=== PATIENT | female | born 1955 | race Caucasian/White ===

== ENCOUNTER → 2017-02-11 | Outpatient (CLI) | payer BC ==
--- NOTE | 2017-02-11 11:00 | DIAGNOSTIC IMAGING REPORT ---
CT ABDOMEN NO IV/ORAL CONT (CT) CT DOSE: 461.07 mGy.cm CLINICAL HISTORY: Renal failure. Family history of pancreatic carcinoma. TECHNIQUE: Image as were obtained through the upper abdomen without intravenous contrast. COMPARISON STUDY: None. FINDINGS: The visualized portions lung bases reveal minor basilar atelectasis. No hepatic masses are visualized in this noncontrast study. No gallbladder masses are visualized. No splenic masses are visualized. No pancreatic masses are visualized. No adrenal masses are visualized. There is bilateral renal atrophy. There is partial visualization of what is presumed to represent a left iliac fossa transplant kidney. There is no evidence of abdominal aortic aneurysm. There is no pathologic adenopathy. IMPRESSION: 1. Atrophic date of kidneys 2. No hepatic or pancreatic masses identified on this noncontrast study. Electronically signed by: Reyes Son M.D. 02/11/2017 10:59 AM Dictated Date/Time: 02/11/2017 10:57 AM
== END | disposition home or self-care (01) ==
LOC: C.CTS 10:31
PROVIDERS: ATTEND Internal Medicine
DX: D89.9 Disorder involving the immune mechanism, unspecified (principal); Z87.442 Personal history of urinary calculi; Z80.0 Family history of malignant neoplasm of digestive organs

== ENCOUNTER → 2017-12-05 | Outpatient (CLI) | payer BC ==
[2017-12-05 17:31] LABS: BASO % 0.1 %; BASO ABS # 0.01 K/uL (0-0.2); EOS % 2.3 %; EOS ABS # 0.21 K/uL (0-0.5); HEMATOCRIT 26.1 % (37-47); HEMOGLOBIN 8.8 g/dL (12.0-16.0); IG# 0.02 K/uL (0.00-0.02); LYMPH % 15.3 %; LYMPH ABS # 1.38 K/uL (1.2-3.4); MEAN CELL VOLUME 115.5 fL (80-100); MEAN CORPUSCULAR HEMOGLOBIN 38.9 pg (25-34); MEAN CORPUSCULAR HGB CONC 33.7 g/dl (32-36); MEAN PLATELET VOLUME 9.8 fL (7.4-10.4); MONO % 6.3 %; MONO ABS # 0.57 K/uL (0.11-0.59); NEUT % 75.8 %; NEUT ABS # 6.83 K/uL (1.4-6.5); PLATELET COUNT 269 K/uL (130-400); RED CELL DISTRIBUTION WIDTH CV 15.7 % (11.5-14.5); RED CELL DISTRIBUTION WIDTH SD 65.2 fL (36.4-46.3); WHITE BLOOD COUNT 9.02 K/uL (4.8-10.8)
[2017-12-05 18:25] LABS: ALBUMIN 3.6 gm/dl (3.4-5.0); ALKALINE PHOSPHATASE 55 U/L (45-117); ALT/SGPT 20 U/L (12-78); AST/SGOT 13 U/L (15-37); BLOOD UREA NITROGEN 67 mg/dl (7-18); CALCIUM 9.3 mg/dl (8.5-10.1); CARBON DIOXIDE 21 mmol/L (21-32); GLUCOSE 97 mg/dl (70-99); POTASSIUM 3.5 mmol/L (3.5-5.1); SODIUM 140 mmol/L (136-145); TOTAL PROTEIN 7.3 gm/dl (6.4-8.2); TRANSFERRIN 238 mg/dl (200-360)
[2017-12-05 18:29] LABS: CREATININE 6.64 mg/dl (0.60-1.20)
== END | disposition home or self-care (01) ==
LOC: C.LAB1850 17:02
PROVIDERS: ATTEND Internal Medicine
DX: E66.9 Obesity, unspecified (principal)

== ENCOUNTER → 2017-12-30 | Outpatient (CLI) | payer BC ==
[~2017-12-30] MED LIST: AMOX1TAB42 PO; AZAT50TA33 PO; BNC5 PO; CALC0.2510 PO; HYDR25TA4 PO; ONDA4TAB65 PO; PANT1TAB3 PO; PRED20TA PO; QSTP PO; VANC5CAP PO
[2017-12-30 17:41] LABS: BASO % 0.1 %; BASO ABS # 0.01 K/uL (0-0.2); EOS % 1.4 %; EOS ABS # 0.11 K/uL (0-0.5); HEMATOCRIT 24.5 % (37-47); HEMOGLOBIN 8.4 g/dL (12.0-16.0); IG# 0.02 K/uL (0.00-0.02); LYMPH % 11.7 %; LYMPH ABS # 0.94 K/uL (1.2-3.4); MEAN CELL VOLUME 112.9 fL (80-100); MEAN CORPUSCULAR HEMOGLOBIN 38.7 pg (25-34); MEAN CORPUSCULAR HGB CONC 34.3 g/dl (32-36); MEAN PLATELET VOLUME 9.5 fL (7.4-10.4); MONO ABS # 0.48 K/uL (0.11-0.59); NEUT % 80.6 %; NEUT ABS # 6.47 K/uL (1.4-6.5); PLATELET COUNT 295 K/uL (130-400); RED CELL DISTRIBUTION WIDTH CV 14.6 % (11.5-14.5); RED CELL DISTRIBUTION WIDTH SD 58.8 fL (36.4-46.3); WHITE BLOOD COUNT 8.03 K/uL (4.8-10.8)
[2017-12-30 18:46] LABS: BLOOD UREA NITROGEN 62 mg/dl (7-18); CALCIUM 9.5 mg/dl (8.5-10.1); CARBON DIOXIDE 20 mmol/L (21-32); GLUCOSE 112 mg/dl (70-99); POTASSIUM 3.3 mmol/L (3.5-5.1); SODIUM 139 mmol/L (136-145)
== END ==
LOC: C.LAB1850 16:54
PROVIDERS: ATTEND Internal Medicine
DX: E78.00 Pure hypercholesterolemia, unspecified (principal)

== ENCOUNTER 2017-12-31 14:54 | Observation (INO) | payer BC ==
[~2017-12-31] VITALS: Ht 162.6 cm; Wt 82.6 kg
--- NOTE | 2017-12-31 15:49 | EMERGENCY ROOM VISIT NOTE ---
History First contact with patient: 15:09 Chief Complaint: ABDOMINAL PAIN Stated Complaint: ABDOMINAL PAIN History of Present Illness The patient is a 62 year old female with PMH of left kidney transplant 41 years ago who presents to the Emergency Room with complaints of intermittent LLQ abdominal pain which started about 2 months ago and was getting worse. states the pain is colicky, in her LLQ with no radiation. denies any nausea, vomiting, diarrhea . denies any urinary symptoms. She states that she usually doesn't get any fevers but had a low grade temp yesterday. denies any BRBPR /melena. had a colonoscopy last year and was found to have diverticulosis. denies CP/SOB/palpitations. has a h/o kidney stones in the transplanted kidney but had an US of kidneys in Dec which was apparently normal. Review of Systems See HPI for pertinent positives & negatives. A total of 10 systems reviewed and were otherwise negative. Past Medical/Surgical History Medical Problems: (1) Diabetes mellitus Surgical Problems: (1) History of appendectomy (2) Kidney transplant recipient Left kidney transplant for interstitial nephritis Social History Smoking Status: Never Smoker Current/Historical Medications Scheduled Azathioprine (Imuran), 150 MG PO DAILY Calcitriol (Rocaltrol Cap), 0.25 MCG PO UD Hydrochlorothiazide (Hctz), 25 MG PO DAILY Olmesartan Medoxomil (Benicar), 10 MG PO Q2D Pantoprazole (Protonix), 40 MG PO DAILY Prednisone (Prednisone), 10 MG PO Q2D Physical Exam Vital Signs Date Time Temp Pulse Resp B/P (MAP) Pulse Ox O2 Delivery O2 Flow Rate FiO2 12/31/17 18:34 78 16 117/70 98 Room Air 12/31/17 16:56 82 16 120/62 95 Room Air 12/31/17 15:02 36.8 94 20 148/74 98 Room Air Physical Exam GENERAL: Patient is in no acute distress. HEENT: No acute trauma, normocephalic atraumatic, mucous membranes moist, no nasal congestion, no scleral icterus. NECK: No stridor, no adenopathy, no meningismus, trachea is midline. LUNGS: Clear to auscultation bilaterally, no wheeze, no rhonchi, breath sounds equal. HEART: Without murmurs gallops or rubs, regular rate and rhythm. ABDOMEN: Soft, LLQ tenderness, distended abdomen, bowel sounds positive, midline scar EXTREMITIES: No cyanosis or edema, full range of motion of all the joints without pain or difficulty, no signs for acute trauma. NEUROLOGIC: Oriented x 3, no acute motor or sensory deficits, no focal weakness. SKIN: No rash, no jaundice, no diaphoresis. Medical Decision & Procedures ER Provider Diagnostic Interpretation: [~ rep ct add3]] ABD/PELVIS NO IV OR ORAL CONT CT DOSE: 796.58 mGy.cm HISTORY: Pain LLQ abdominal pain TECHNIQUE: Multiaxial CT images of the abdomen and pelvis were performed without contrast. A dose lowering technique was utilized adhering to the principles of ALARA. COMPARISON STUDY: 02/11/2017 FINDINGS: Chronic pleural reactive change right and to lesser extent left lung base. Overall configuration of liver spleen and pancreas are unremarkable. Several accessory spleens are present. Kidneys are atrophied. Several small renal cysts and renal vascular calcifications are appreciated. Several para-aortic nodes are present unchanged from the prior exam. The bowel pattern is nonobstructive. There is a left renal transplant with no evidence for hydronephrosis. There are findings of acute mid sigmoid diverticulitis. Moderate wall thickening of the mid sigmoid combined with moderate pericolonic infiltrative change is present. There is no evidence for drainable abscess or collection. There is no secondary evidence for free air. IMPRESSION: 1. Acute mid sigmoid diverticulitis. 2. Moderate wall thickening with moderate pericolonic infiltrative change. 3. No evidence for abscess collection or obstruction. 4. Atrophy of the kidneys bilaterally with evidence for left renal pelvic transplant. The above report was generated using voice recognition software. It may contain grammatical, syntax or spelling errors. Electronically signed by: Wilmar Hurley M.D. 12/31/2017 4:12 PM Dictated Date/Time: 12/31/2017 4:07 PM RENAL TRANSPLANT ULTRASOUND CLINICAL HISTORY: Left lower quadrant pain. COMPARISON STUDY: Renal transplant ultrasound August 06, [address] of the abdomen and pelvis February 11, 2017. TECHNIQUE: Grayscale and color and duplex Doppler sonography of the left lower quadrant renal allograft was performed. FINDINGS: Both [place] kidneys are markedly atrophic and contain multiple cysts. The left lower quadrant renal allograft vein and artery are patent. There is mild graft collecting system dilatation. A few small calculi are noted within the allograft. No perigraft fluid collection is present. No elevated velocities were identified within the transplant artery. Resistive indices are elevated within the segmental vessels of the allograft. IMPRESSION: 1. Mild left lower quadrant allograft collecting system dilatation, a nonspecific finding. 2. Patent transplant artery and vein. No elevated velocities to suggest a hemodynamically significant stenosis. 3. Elevated resistive indices within the segmental vessels of the allograft, a finding which may reflect chronic rejection. Electronically signed by: Ang Rodgers M.D. 12/31/2017 4:50 PM Dictated Date/Time: 12/31/2017 4:46 PM Laboratory Results 12/31/17 16:41 Red Blood Count 1.94, Mean Corpuscular Volume 110.3, Mean Corpuscular Hemoglobin 38.7, Mean Corpuscular Hemoglobin Concent 35.0, Mean Platelet Volume 8.7, Neutrophils (%) (Auto) 89.3, Lymphocytes (%) (Auto) 7.1, Monocytes (%) ( Auto) 3.0, Eosinophils (%) (Auto) 0.2, Basophils (%) (Auto) 0.0, Neutrophils # ( Auto) 4.81, Lymphocytes # (Auto) 0.38, Monocytes # (Auto) 0.16, Eosinophils # ( Auto) 0.01, Basophils # (Auto) 0.00 12/31/17 16:41 Test 12/31/17 15:39 12/31/17 16:41 Urine Color YELLOW Urine Appearance CLEAR (CLEAR) Urine pH 5.5 (4.5-7.5) Urine Specific [place] 1.014 (1.000-1.030) Urine Protein 2+ (NEG) Urine Glucose (UA) 1+ (NEG) Urine Ketones TRACE (NEG) Urine Occult Blood 2+ (NEG) Urine Nitrite NEG (NEG) Urine Bilirubin NEG (NEG) Urine Urobilinogen NEG (NEG) Urine Leukocyte Esterase TRACE (NEG) Urine WBC (Auto) 5-10 /hpf (0-5) Urine RBC (Auto) 0-4 /hpf (0-4) Urine Hyaline Casts (Auto) 1-5 /lpf (0-5) Urine Epithelial Cells (Auto) >30 /lpf (0-5) Urine Bacteria (Auto) NEG (NEG) White Blood Count 5.38 K/uL (4.8-10.8) Red Blood Count 1.94 M/uL (4.2-5.4) Hemoglobin 7.5 g/dL (12.0-16.0) Hematocrit 21.4 % (37-47) Mean Corpuscular Volume 110.3 fL (80-100) Mean Corpuscular Hemoglobin 38.7 pg (25-34) Mean Corpuscular Hemoglobin Concent 35.0 g/dl (32-36) Platelet Count 232 K/uL (130-400) Mean Platelet Volume 8.7 fL (7.4-10.4) Neutrophils (%) (Auto) 89.3 % Lymphocytes (%) (Auto) 7.1 % Monocytes (%) (Auto) 3.0 % Eosinophils (%) (Auto) 0.2 % Basophils (%) (Auto) 0.0 % Neutrophils # (Auto) 4.81 K/uL (1.4-6.5) Lymphocytes # (Auto) 0.38 K/uL (1.2-3.4) Monocytes # (Auto) 0.16 K/uL (0.11-0.59) Eosinophils # (Auto) 0.01 K/uL (0-0.5) Basophils # (Auto) 0.00 K/uL (0-0.2) RDW Standard Deviation 56.7 fL (36.4-46.3) RDW Coefficient of Variation 14.3 % (11.5-14.5) Immature Granulocyte % (Auto) 0.4 % Immature Granulocyte # (Auto) 0.02 K/uL (0.00-0.02) Polychromasia 1+ Macrocytosis PRESENT Anion Gap 10.0 mmol/L (3-11) Est Creatinine Clear Calc Drug Dose 9.5 ml/min Estimated GFR () 7.5 Estimated GFR (Non- 6.5 BUN/Creatinine Ratio 11.5 (10-20) Calcium Level 9.1 mg/dl (8.5-10.1) Total Bilirubin 0.4 mg/dl (0.2-1) Aspartate Amino Transf (AST/SGOT) 11 U/L (15-37) Alanine Aminotransferase (ALT/SGPT) 16 U/L (12-78) Alkaline Phosphatase 52 U/L (45-117) Total Protein 6.8 gm/dl (6.4-8.2) Albumin 3.2 gm/dl (3.4-5.0) Globulin 3.6 gm/dl (2.5-4.0) Albumin/Globulin Ratio 0.9 (0.9-2) Lipase 367 U/L (73-393) Medications Administered Medications (Trade) Dose Ordered Sig/Ron Route Start Time Stop Time Status Last Admin Dose Admin Piperacillin Sod/ Tazobactam Sod (Zosyn Iv) 4.5 gm NOW STAT IV 12/31/17 18:37 12/31/17 18:38 DC 12/31/17 18:37 4.5 GM Medical Decision Prior records/ancillary studies reviewed. Triage Nursing notes reviewed. Additional history obtained from the patient. The patient's history was concerning for abdominal pain. Differential diagnosis: Etiologies such as appendicitis, diverticulitis, PUD, biliary pathology, UTI, pancreatitis, obstruction, mesenteric ischemia, aortic pathology, infections, inflammatory bowel disease, renal colic, as well as others were entertained. Physical examination findings: As above. ER treatment provided: CBC, CMP, lipase, UA, abd/pelvis CT, duplex US of transplant were ordered On reassessment the patient felt better. Diagnostics interpreted by me: The labs revealed a hgb of 7.5, Cr at 6.3 Imaging studies: Duplex US: 1. Mild left lower quadrant allograft collecting system dilatation, a nonspecific finding. 2. Patent transplant artery and vein. No elevated velocities to suggest a hemodynamically significant stenosis. 3. Elevated resistive indices within the segmental vessels of the allograft, a finding which may reflect chronic rejection. Abd/pelvis CT: 1. Acute mid sigmoid diverticulitis. 2. Moderate wall thickening with moderate pericolonic infiltrative change. 3. No evidence for abscess collection or obstruction. 4. Atrophy of the kidneys bilaterally with evidence for left renal pelvic transplant. Consultation: A consultation was placed with the hospitalist. The case was discussed and diagnostics were reviewed. The patient was evaluated in the ER for further treatment. By the evaluation outlined above emergent etiologies such as appendicitis, diverticulitis, PUD, biliary pathology, UTI, pancreatitis, obstruction, mesenteric ischemia, aortic pathology, infections, inflammatory bowel disease, renal colic, as well as others were deemed relatively unlikely. 62-year-old female, kidney transplant recipient presented with intermittent lower abdominal pain which started about 2 months ago. She was seen by her marketing program coordinator who recommended that she be admitted. In the ER she was found to have a hemoglobin of 7.5 and a creatinine of 6.4 which is about her baseline. Abdominal CT was obtained which revealed mid sigmoid diverticulitis. An ultrasound of the renal graft was obtained which revealed Patent transplant artery and vein. No elevated velocities to suggest a hemodynamically significant stenosis. Elevated resistive indices within the segmental vessels of the allograft, a finding which may reflect chronic rejection. She was admitted for further eval and treatment Impression Primary Impression: Sigmoid diverticulitis Additional Impressions: Elevated serum creatinine Kidney transplant recipient Departure Information Referrals Matthew Mensah M.D. (PCP) Patient Instructions My [facility] Resident Tracking Resident Involvement: Resident Care Provided Care Provided: Adult ED Problem Qualifiers
--- NOTE | 2017-12-31 16:14 | DIAGNOSTIC IMAGING REPORT ---
ABD/PELVIS NO IV OR ORAL CONT CT DOSE: 796.58 mGy.cm HISTORY: Pain LLQ abdominal pain TECHNIQUE: Multiaxial CT images of the abdomen and pelvis were performed without contrast. A dose lowering technique was utilized adhering to the principles of ALARA. COMPARISON STUDY: 02/11/2017 FINDINGS: Chronic pleural reactive change right and to lesser extent left lung base. Overall configuration of liver spleen and pancreas are unremarkable. Several accessory spleens are present. Kidneys are atrophied. Several small renal cysts and renal vascular calcifications are appreciated. Several para-aortic nodes are present unchanged from the prior exam. The bowel pattern is nonobstructive. There is a left renal transplant with no evidence for hydronephrosis. There are findings of acute mid sigmoid diverticulitis. Moderate wall thickening of the mid sigmoid combined with moderate pericolonic infiltrative change is present. There is no evidence for drainable abscess or collection. There is no secondary evidence for free air. IMPRESSION: 1. Acute mid sigmoid diverticulitis. 2. Moderate wall thickening with moderate pericolonic infiltrative change. 3. No evidence for abscess collection or obstruction. 4. Atrophy of the kidneys bilaterally with evidence for left renal pelvic transplant. The above report was generated using voice recognition software. It may contain grammatical, syntax or spelling errors. Electronically signed by: Wilmar Hurley M.D. 12/31/2017 4:12 PM Dictated Date/Time: 12/31/2017 4:07 PM
--- NOTE | 2017-12-31 16:51 | DIAGNOSTIC IMAGING REPORT ---
RENAL TRANSPLANT ULTRASOUND CLINICAL HISTORY: Left lower quadrant pain. COMPARISON STUDY: Renal transplant ultrasound August 06, [address] of the abdomen and pelvis February 11, 2017. TECHNIQUE: Grayscale and color and duplex Doppler sonography of the left lower quadrant renal allograft was performed. FINDINGS: Both [place] kidneys are markedly atrophic and contain multiple cysts. The left lower quadrant renal allograft vein and artery are patent. There is mild graft collecting system dilatation. A few small calculi are noted within the allograft. No perigraft fluid collection is present. No elevated velocities were identified within the transplant artery. Resistive indices are elevated within the segmental vessels of the allograft. IMPRESSION: 1. Mild left lower quadrant allograft collecting system dilatation, a nonspecific finding. 2. Patent transplant artery and vein. No elevated velocities to suggest a hemodynamically significant stenosis. 3. Elevated resistive indices within the segmental vessels of the allograft, a finding which may reflect chronic rejection. Electronically signed by: Ang Rodgers M.D. 12/31/2017 4:50 PM Dictated Date/Time: 12/31/2017 4:46 PM
[2017-12-31 16:54] LABS: HEMATOCRIT 21.4 % (37-47); HEMOGLOBIN 7.5 g/dL (12.0-16.0); MEAN CELL VOLUME 110.3 fL (80-100); MEAN CORPUSCULAR HEMOGLOBIN 38.7 pg (25-34); MEAN PLATELET VOLUME 8.7 fL (7.4-10.4); PLATELET COUNT 232 K/uL (130-400); RED CELL DISTRIBUTION WIDTH CV 14.3 % (11.5-14.5); RED CELL DISTRIBUTION WIDTH SD 56.7 fL (36.4-46.3); WHITE BLOOD COUNT 5.38 K/uL (4.8-10.8)
[2017-12-31 17:27] LABS: EOS % 0.2 %; EOS ABS # 0.01 K/uL (0-0.5); IG# 0.02 K/uL (0.00-0.02); LYMPH % 7.1 %; LYMPH ABS # 0.38 K/uL (1.2-3.4); MONO ABS # 0.16 K/uL (0.11-0.59); NEUT % 89.3 %; NEUT ABS # 4.81 K/uL (1.4-6.5)
[2017-12-31 17:32] LABS: ALBUMIN 3.2 gm/dl (3.4-5.0); CALCIUM 9.1 mg/dl (8.5-10.1); CREATININE 6.34 mg/dl (0.60-1.20); POTASSIUM 3.4 mmol/L (3.5-5.1); TOTAL PROTEIN 6.8 gm/dl (6.4-8.2)
[2017-12-31] MEDS ORDERED: AZAT50TA33 PO (18:11)
[2017-12-31] MEDS ORDERED: PANT1TAB3 PO (18:11)
[2017-12-31] MEDS ORDERED: PRED20TA PO (18:11)
[2017-12-31] MEDS ORDERED: HYDR25TA4 PO (18:11)
[2017-12-31] MEDS ORDERED: BNC5 PO (18:11)
[2017-12-31] MEDS ORDERED: CALC0.2510 PO (18:11)
[2017-12-31] MEDS ORDERED: PIPERACILLIN/TAZOBACTAM 4.5 GM/100ML D5W IV STA (18:37)
--- NOTE | 2017-12-31 18:54 | EMERGENCY ROOM VISIT NOTE ---
History Report prepared by Susana: Nalini Jones Under the Supervision of: Dr. Jaime Ayala M.D. First contact with patient: 15:06 Chief Complaint: ABDOMINAL PAIN Stated Complaint: ABDOMINAL PAIN History of Present Illness The patient is a 62 year old female who presents to the Emergency Room with complaints of intermittent LLQ abdominal pain for the past 2 months. She states that she had a "GI bug" around New Years and since then she has been having intermittent diarrhea that is worse with eating most food. She has LLQ pain that is also worsened with eating most foods. The patient states that these symptoms have worsened over the past two weeks. She rates her current pain as a 4/10 in severity. Yesterday she went to Dr. Mensah's office. She had a temperature of 100.3 at that time and he advised her to come to the ED for further evaluation. The patient has a history of diverticulosis. The patient had a left kidney transplant 41 years ago. Her creatinine has been stable around 5 for the past few years. She still makes urine and denies any current urinary symptoms. She does not receive dialysis. The patient denies nausea, vomiting, chills, melena, hematochezia, and diarrhea. Source of History: patient Onset: 2 months ago Position: abdomen (LLQ) Symptom Intensity: 4/10 Timing: intermittent Modifying Factors (Worsening): eating Associated Symptoms: + fevers, No chills, No nausea, No vomiting, No melena , No hematochezia, No diarrhea, No urinary symptoms Review of Systems See HPI for pertinent positives & negatives. A total of 10 systems reviewed and were otherwise negative. Past Medical & Surgical Medical Problems: (1) Diabetes mellitus Surgical Problems: (1) History of appendectomy (2) Kidney transplant recipient Family History Cancer Diabetes mellitus FHx: gallbladder disease Heart disease Hypertension Kidney disease Kidney stones Lung disease Social History Smoking Status: Never Smoker Smokeless Tobacco Use: No Alcohol Use: none Housing Status: lives alone Occupation Status: employed Current/Historical Medications Scheduled Azathioprine (Imuran), 150 MG PO DAILY Calcitriol (Rocaltrol Cap), 0.25 MCG PO UD Hydrochlorothiazide (Hctz), 25 MG PO DAILY Olmesartan Medoxomil (Benicar), 10 MG PO Q2D Pantoprazole (Protonix), 40 MG PO DAILY Prednisone (Prednisone), 10 MG PO Q2D Allergies Coded Allergies: NSAIDs (Verified Allergy, Severe, Kidney transplant, 12/31/17) Meperidine (Verified Allergy, Intermediate, N/V, 12/31/17) Furosemide (Verified Allergy, Mild, Rash, 12/31/17) Sulfa Antibiotics (Verified Allergy, Mild, Hives, 12/31/17) Uncoded Allergies: NARCOTICS (Allergy, Unknown, "They make me sick.", 12/31/17) Physical Exam Vital Signs Date Time Temp Pulse Resp B/P (MAP) Pulse Ox O2 Delivery O2 Flow Rate FiO2 12/31/17 18:34 78 16 117/70 98 Room Air 12/31/17 16:56 82 16 120/62 95 Room Air 12/31/17 15:02 36.8 94 20 148/74 98 Room Air Physical Exam Constitutional: Vital signs reviewed. Eyes: Pupils are equal round reactive to light. Conjunctiva are noninjected. ENT: Pharynx is clear without erythema or exudate. Mucous membranes are moist. Neck supple without meningeal signs. Respiratory: Clear to auscultation bilaterally. Breath sounds are equal bilaterally. Cardiovascular: Regular rate and rhythm. No rubs or gallops. GI: Soft, nondistended. LLQ tenderness, no guarding. Bowel sounds are present. Musculoskeletal: No peripheral edema. No lower extremity tenderness. Integumentary: No cyanosis. Neurological: The patient is awake and alert. No focal deficits. Psychiatric: Normal affect. Medical Decision & Procedures Laboratory Results 12/31/17 16:41 Red Blood Count 1.94, Mean Corpuscular Volume 110.3, Mean Corpuscular Hemoglobin 38.7, Mean Corpuscular Hemoglobin Concent 35.0, Mean Platelet Volume 8.7, Neutrophils (%) (Auto) 89.3, Lymphocytes (%) (Auto) 7.1, Monocytes (%) ( Auto) 3.0, Eosinophils (%) (Auto) 0.2, Basophils (%) (Auto) 0.0, Neutrophils # ( Auto) 4.81, Lymphocytes # (Auto) 0.38, Monocytes # (Auto) 0.16, Eosinophils # ( Auto) 0.01, Basophils # (Auto) 0.00 12/31/17 16:41 Test 12/31/17 15:39 12/31/17 16:41 Urine Color YELLOW Urine Appearance CLEAR (CLEAR) Urine pH 5.5 (4.5-7.5) Urine Specific [place] 1.014 (1.000-1.030) Urine Protein 2+ (NEG) Urine Glucose (UA) 1+ (NEG) Urine Ketones TRACE (NEG) Urine Occult Blood 2+ (NEG) Urine Nitrite NEG (NEG) Urine Bilirubin NEG (NEG) Urine Urobilinogen NEG (NEG) Urine Leukocyte Esterase TRACE (NEG) Urine WBC (Auto) 5-10 /hpf (0-5) Urine RBC (Auto) 0-4 /hpf (0-4) Urine Hyaline Casts (Auto) 1-5 /lpf (0-5) Urine Epithelial Cells (Auto) >30 /lpf (0-5) Urine Bacteria (Auto) NEG (NEG) White Blood Count 5.38 K/uL (4.8-10.8) Red Blood Count 1.94 M/uL (4.2-5.4) Hemoglobin 7.5 g/dL (12.0-16.0) Hematocrit 21.4 % (37-47) Mean Corpuscular Volume 110.3 fL (80-100) Mean Corpuscular Hemoglobin 38.7 pg (25-34) Mean Corpuscular Hemoglobin Concent 35.0 g/dl (32-36) Platelet Count 232 K/uL (130-400) Mean Platelet Volume 8.7 fL (7.4-10.4) Neutrophils (%) (Auto) 89.3 % Lymphocytes (%) (Auto) 7.1 % Monocytes (%) (Auto) 3.0 % Eosinophils (%) (Auto) 0.2 % Basophils (%) (Auto) 0.0 % Neutrophils # (Auto) 4.81 K/uL (1.4-6.5) Lymphocytes # (Auto) 0.38 K/uL (1.2-3.4) Monocytes # (Auto) 0.16 K/uL (0.11-0.59) Eosinophils # (Auto) 0.01 K/uL (0-0.5) Basophils # (Auto) 0.00 K/uL (0-0.2) RDW Standard Deviation 56.7 fL (36.4-46.3) RDW Coefficient of Variation 14.3 % (11.5-14.5) Immature Granulocyte % (Auto) 0.4 % Immature Granulocyte # (Auto) 0.02 K/uL (0.00-0.02) Polychromasia 1+ Macrocytosis PRESENT Anion Gap 10.0 mmol/L (3-11) Est Creatinine Clear Calc Drug Dose 9.5 ml/min Estimated GFR () 7.5 Estimated GFR (Non- 6.5 BUN/Creatinine Ratio 11.5 (10-20) Calcium Level 9.1 mg/dl (8.5-10.1) Total Bilirubin 0.4 mg/dl (0.2-1) Aspartate Amino Transf (AST/SGOT) 11 U/L (15-37) Alanine Aminotransferase (ALT/SGPT) 16 U/L (12-78) Alkaline Phosphatase 52 U/L (45-117) Total Protein 6.8 gm/dl (6.4-8.2) Albumin 3.2 gm/dl (3.4-5.0) Globulin 3.6 gm/dl (2.5-4.0) Albumin/Globulin Ratio 0.9 (0.9-2) Lipase 367 U/L (73-393) Laboratory results as reviewed by me. ED Course 1506: The patient was evaluated in room B2. A complete history and physical exam was performed. Medical Decision This is a 62-year-old female who presents with left lower quadrant abdominal pain. Differential diagnosis includes diverticulitis, abscess, perforation, kidney stone, UTI, transplant rejection. I did perform a limited focused review of portions of the patient's old chart on the electronic medical record. The patient has had no recent pertinent visits to this hospital. I did evaluate the patient as noted above. IV access was established. I did order and personally review the patient's urine analysis as described above. I did order and review the patient's blood work as noted in the electronic medical record. She is anemic. Her creatinine is 6.3. I did order a CT of the abdomen and pelvis. I did review the images myself as well as the radiology report as described above. She does have mid sigmoid diverticulitis without evidence of abscess or perforation. Ultrasound of the renal allograft shows no acute abnormality. The test results were discussed with the patient. I did discuss the case with Dr. Mensah who sent the patient here. He did wish to have her hospitalized. I did speak to Dr. Kim and the case checker. I did treat her with Zosyn IV. Resident Physician Supervision Note: I did evaluate and examine this patient myself. I did guide management for the patient. I agree with the resident's Dr. Drake assessment as discussed. Please see the resident's dictation for further details. Medication Reconcilliation Current Medication List: was personally reviewed by me Blood Pressure Screening Patient's blood pressure: Elevated blood pressure Blood pressure disposition: Referred to PCP Consults Consulting Physician: Dr. Kim Returned Call: Additional Consults: Consulted Physician: Dr. Mensah Returned Call: [phone] Impression Primary Impression: Sigmoid diverticulitis Additional Impressions: Hx of kidney transplant Elevated serum creatinine Anemia Scribe Attestation The scribe's documentation has been prepared under my direct and personally reviewed by me in its entirety. I confirm that the note above accurately reflects all work, treatment, procedures, and medical decision making performed by me. Departure Information Dispostion Being Evaluated By Hospitalist Referrals Matthew Mensah M.D. (PCP) Patient Instructions My [facility] Problem Qualifiers Additional Impressions: Anemia Anemia type: due to chronic kidney disease Chronic kidney disease stage: unspecified stage Qualified Codes: N18.9 - Chronic kidney disease, unspecified ; D63.1 - Anemia in chronic kidney disease
[2017-12-31] MEDS ORDERED: ACETAMINOPHEN 325 MG TAB PO PRN (19:15)
[2017-12-31] MEDS ORDERED: MAGNESIUM HYDROXIDE SUSP 30 ML UDC PO PRN (19:15)
--- NOTE | 2017-12-31 19:25 | History and Physical ---
History & Physical Date & Time of Service: Dec 31, 2017 at 19:08 Chief Complaint: Abdominal Pain Primary Care Physician: Matthew Mensah M.D. History of Present Illness Source: patient 62 y/o F c/o intermittent LLQ abdominal pain. Pt states that she had a "GI bug" around New Year's with v/d. The v/d resolved, but she continued to have pain that has been steadily getting worse. There is no radiation. Denies n/v/d. She had a low grade temp yesterday, but none prior. She has no urinary sx. She was tolerating PO until recently when all PO started to cause her to have worsening abd pain. Pt denies fever, SOB, chest pain, LE pain or swelling. Pt states she has hemorrhoids that she has palpated herself. She does get BRB on toilet tissue at times, but she has not had a bowel movement recently due to decreased PO intake. Pt states she has been holding her omesartan due to low BP. She is taking this for renal protection only and checks her BPs daily. She takes HCTZ for LE swelling and this has been well controlled. Pt states her Hb will gradually dwindle as she moves further from her Procrit injection and she is about due for this. Past Medical/Surgical History Medical Problems: (1) Diabetes mellitus Status: Chronic Surgical Problems: (1) History of appendectomy Status: Resolved (2) Kidney transplant recipient Status: Chronic DM, diet controlled GERD LE swelling Family History Cancer Diabetes mellitus FHx: gallbladder disease Heart disease Hypertension Kidney disease Kidney stones Lung disease Mother with hx of CAD, s/p CVA Father: pancreatic cancer, s/p CVA Social History Smoking Status: Never Smoker Smokeless Tobacco Use: No Alcohol Use: none Drug Use: none Occupational Status: employed Multi-Drug Resistant Organisms History of MDRO: No Allergies Coded Allergies: NSAIDs (Verified Allergy, Severe, Kidney transplant, 12/31/17) Meperidine (Verified Allergy, Intermediate, N/V, 12/31/17) Furosemide (Verified Allergy, Mild, Rash, 12/31/17) Sulfa Antibiotics (Verified Allergy, Mild, Hives, 12/31/17) Uncoded Allergies: NARCOTICS (Allergy, Unknown, "They make me sick.", 12/31/17) Home Medications Scheduled Azathioprine (Imuran), 150 MG PO DAILY Calcitriol (Rocaltrol Cap), 0.25 MCG PO UD Hydrochlorothiazide (Hctz), 25 MG PO DAILY Olmesartan Medoxomil (Benicar), 10 MG PO Q2D Pantoprazole (Protonix), 40 MG PO DAILY Prednisone (Prednisone), 10 MG PO Q2D Review of Systems Pertinent positives and negatives reviewed in HPI--all others negative Physical Exam Vital Signs Date Time Temp Pulse Resp B/P (MAP) Pulse Ox O2 Delivery O2 Flow Rate FiO2 12/31/17 18:34 78 16 117/70 98 Room Air 12/31/17 16:56 82 16 120/62 95 Room Air 12/31/17 15:02 36.8 94 20 148/74 98 Room Air General Appearance: WD/WN, no apparent distress Head: normocephalic, atraumatic Eyes: normal inspection, sclerae normal Respiratory/Chest: normal breath sounds, no respiratory distress Cardiovascular: regular rate, rhythm, no edema Abdomen/GI: soft, + tenderness (LLQ), + distended Extremities/Musculoskelatal: no calf tenderness, no pedal edema Neurologic/Psych: alert, normal mood/affect, oriented x 3 Skin: normal color, warm/dry Diagnostics Laboratory Results Results Past 24 Hours Test 12/31/17 15:39 12/31/17 16:41 Range/Units Urine Color YELLOW Urine Appearance CLEAR CLEAR Urine pH 5.5 4.5-7.5 Urine Specific [place] 1.014 1.000-1.030 Urine Protein 2+ NEG Urine Glucose (UA) 1+ NEG Urine Ketones TRACE NEG Urine Occult Blood 2+ NEG Urine Nitrite NEG NEG Urine Bilirubin NEG NEG Urine Urobilinogen NEG NEG Urine Leukocyte Esterase TRACE NEG Urine WBC (Auto) 5-10 0-5 /hpf Urine RBC (Auto) 0-4 0-4 /hpf Urine Hyaline Casts (Auto) 1-5 0-5 /lpf Urine Epithelial Cells (Auto) >30 0-5 /lpf Urine Bacteria (Auto) NEG NEG White Blood Count 5.38 4.8-10.8 K/uL Red Blood Count 1.94 4.2-5.4 M/uL Hemoglobin 7.5 12.0-16.0 g/dL Hematocrit 21.4 37-47 % Mean Corpuscular Volume 110.3 80-100 fL Mean Corpuscular Hemoglobin 38.7 25-34 pg Mean Corpuscular Hemoglobin Concent 35.0 32-36 g/dl Platelet Count 232 130-400 K/uL Mean Platelet Volume 8.7 7.4-10.4 fL Neutrophils (%) (Auto) 89.3 % Lymphocytes (%) (Auto) 7.1 % Monocytes (%) (Auto) 3.0 % Eosinophils (%) (Auto) 0.2 % Basophils (%) (Auto) 0.0 % Neutrophils # (Auto) 4.81 1.4-6.5 K/uL Lymphocytes # (Auto) 0.38 1.2-3.4 K/uL Monocytes # (Auto) 0.16 0.11-0.59 K/uL Eosinophils # (Auto) 0.01 0-0.5 K/uL Basophils # (Auto) 0.00 0-0.2 K/uL RDW Standard Deviation 56.7 36.4-46.3 fL RDW Coefficient of Variation 14.3 11.5-14.5 % Immature Granulocyte % (Auto) 0.4 % Immature Granulocyte # (Auto) 0.02 0.00-0.02 K/uL Polychromasia 1+ Macrocytosis PRESENT Sodium Level 139 136-145 mmol/L Potassium Level 3.4 3.5-5.1 mmol/L Chloride Level 107 98-107 mmol/L Carbon Dioxide Level 23 21-32 mmol/L Anion Gap 10.0 3-11 mmol/L Blood Urea Nitrogen 73 7-18 mg/dl Creatinine 6.34 0.60-1.20 mg/dl Est Creatinine Clear Calc Drug Dose 9.5 ml/min Estimated GFR () 7.5 Estimated GFR (Non- 6.5 BUN/Creatinine Ratio 11.5 10-20 Random Glucose 155 70-99 mg/dl Calcium Level 9.1 8.5-10.1 mg/dl Total Bilirubin 0.4 0.2-1 mg/dl Aspartate Amino Transf (AST/SGOT) 11 15-37 U/L Alanine Aminotransferase (ALT/SGPT) 16 12-78 U/L Alkaline Phosphatase 52 45-117 U/L Total Protein 6.8 6.4-8.2 gm/dl Albumin 3.2 3.4-5.0 gm/dl Globulin 3.6 2.5-4.0 gm/dl Albumin/Globulin Ratio 0.9 0.9-2 Lipase 367 73-393 U/L Microbiology Results 12/31/17 Urine Culture, Received Pending Diagnostic Radiology CT AP: 1. Acute mid sigmoid diverticulitis. 2. Moderate wall thickening with moderate pericolonic infiltrative change. 3. No evidence for abscess collection or obstruction. 4. Atrophy of the kidneys bilaterally with evidence for left renal pelvic transplant. Renal US: 1. Mild left lower quadrant allograft collecting system dilatation, a nonspecific finding. 2. Patent transplant artery and vein. No elevated velocities to suggest a hemodynamically significant stenosis. 3. Elevated resistive indices within the segmental vessels of the allograft, a finding which may reflect chronic rejection. Impression Assessment and Plan 62 y/o F who was admitted for observation on 12/31 for acute diverticulitis Acute sigmoid diverticulitis: noted as mild on CTAP without abscess Cipro/flagyl PO given no trial of outpt abx IVF and clears No hx of prior episodes, does not need surgical c/s at this time VSS Pt is requesting diet, however will start with clears given decreased recent intake Renal transplant: steroids and immunosuppressants as prior States she has been holding her olmesartan recently due to lower BP, will continue to hold and monitor Renal US is WNL for transplant Baseline cr has been 6-6.6 recently, at 6.3 today Anemia: has been slowly drifting down and pt states this is usual as she moves further away from her procrit injection Monitor Hx of hemorrhoids that do bleed at times Abn UA: urine cx pending Will hold on further abx HypoK: mild, monitor for now DM: diet controlled, monitor States recent A1c was 6.1, will not repeat GERD: continue home meds Other: Full code Clears with IVF SCDs for DVT proph Level of Care Med/Surg Resuscitation Status FULL RESUSCITATION VTE Prophylaxis VTE Risk Assessment Done? Y/N: Yes Risk Level: Low
[2017-12-31] MEDS ORDERED: IV FLUIDS COMPLETED PRN (19:30)
[2017-12-31] MEDS: METRONIDAZOLE 500 MG TAB PO SCH (22:17)
[2017-12-31] MEDS: SODIUM CHLORIDE 0.9% 1000ML 1,000 ML IV SCH (22:17)
[2017-12-31] MEDS: CIPROFLOXACIN 500 MG TAB PO SCH (22:18)
[2017-12-31 22:52] VITALS: BP 115/71; PULSE 88; TEMP 36.8; O2SAT 97
[2018-01-01] VITALS: BP 106/64; PULSE 78; TEMP 36.8; O2SAT 99; Ht 162.6 cm; Wt 82.6 kg
[2018-01-01 06:10] LABS: HEMATOCRIT 19.5 % (37-47); HEMOGLOBIN 6.8 g/dL (12.0-16.0); MEAN CELL VOLUME 110.2 fL (80-100); MEAN CORPUSCULAR HEMOGLOBIN 38.4 pg (25-34); MEAN CORPUSCULAR HGB CONC 34.9 g/dl (32-36); MEAN PLATELET VOLUME 9.2 fL (7.4-10.4); PLATELET COUNT 223 K/uL (130-400); RED CELL DISTRIBUTION WIDTH CV 14.4 % (11.5-14.5); RED CELL DISTRIBUTION WIDTH SD 57.2 fL (36.4-46.3); WHITE BLOOD COUNT 5.13 K/uL (4.8-10.8)
[2018-01-01] MEDS: SODIUM CHLORIDE 0.9% 1000ML 1,000 ML IV SCH ×2 (06:14→16:58)
[2018-01-01 06:38] LABS: CALCIUM 8.9 mg/dl (8.5-10.1); CREATININE 6.01 mg/dl (0.60-1.20); POTASSIUM 3.4 mmol/L (3.5-5.1)
[2018-01-01 08:08] VITALS: BP 91/51; PULSE 69; TEMP 36.5; O2SAT 98
[2018-01-01] MEDS: AZATHIOPRINE 50 MG TAB PO SCH (08:31)
[2018-01-01] MEDS: METRONIDAZOLE 500 MG TAB PO SCH ×3 (08:31→21:18)
[2018-01-01] MEDS: PANTOprazole SOD 40 MG TAB PO SCH (08:31)
[2018-01-01] MEDS: CALCITRIOL 0.25 MCG CAP PO SCH (08:31)
[2018-01-01] MEDS: HYDROCHLOROTHIAZIDE 25 MG TAB PO SCH (08:31)
[2018-01-01 12:00] VITALS: BP 101/52; PULSE 62; TEMP 36.8; O2SAT 96
[2018-01-01 15:31] VITALS: BP 114/69; PULSE 69; TEMP 36.6; O2SAT 98
--- NOTE | 2018-01-01 18:22 | Progress Note ---
Subjective Date of Service: Jan 01, 2018. Subjective pt was seen in the evening and was feeling much better tolerated liquid diet and requested soft food, much less lower quadrant pain. did walk halls without much issues except fatigue Problem List Medical Problems: (1) Anemia Status: Acute (2) Elevated serum creatinine Status: Acute (3) Sigmoid diverticulitis Status: Acute Surgical Problems: (1) Kidney transplant recipient Status: Chronic Social History Problems: (1) Hx of kidney transplant Status: Acute Review of Systems Constitutional: + weakness, + fatigue, No fever, No chills Respiratory: No cough, No shortness of breath, No dyspnea on exertion Cardiac: No chest pain, No PND, No edema Abdomen: No pain, No nausea, No vomiting, No diarrhea Musculoskeletal: No joint pain, No muscle pain Female : No dysuria, No urinary frequency Objective Vital Signs Date Time Temp Pulse Resp B/P (MAP) Pulse Ox O2 Delivery O2 Flow Rate FiO2 01/01/18 16:00 Room Air 01/01/18 15:31 36.6 69 18 114/69 (84) 98 Room Air 01/01/18 12:00 36.8 62 20 101/52 (68) 96 Room Air 01/01/18 08:08 36.5 69 20 91/51 (64) 98 Room Air 01/01/18 08:00 Room Air 01/01/18 00:00 36.8 78 18 106/64 (78) 99 Room Air 01/01/18 00:00 36.8 78 18 106/64 Room Air 12/31/17 22:52 36.8 88 16 115/71 (86) 97 Room Air 12/31/17 19:33 76 16 117/70 95 Room Air 12/31/17 18:34 78 16 117/70 98 Room Air Physical Exam General Appearance: WD/WN, + mild distress Eyes: normal inspection, sclerae normal Respiratory/Chest: chest non-tender, lungs clear, normal breath sounds Cardiovascular: regular rate, rhythm, no murmur Abdomen: normal bowel sounds, soft, + tenderness (mild) Extremities: no pedal edema, no calf tenderness, normal capillary refill Laboratory Results Last 24 Hours Test 01/01/18 05:18 White Blood Count 5.13 K/uL Red Blood Count 1.77 M/uL Hemoglobin 6.8 g/dL Hematocrit 19.5 % Mean Corpuscular Volume 110.2 fL Mean Corpuscular Hemoglobin 38.4 pg Mean Corpuscular Hemoglobin Concent 34.9 g/dl RDW Standard Deviation 57.2 fL RDW Coefficient of Variation 14.4 % Platelet Count 223 K/uL Mean Platelet Volume 9.2 fL Sodium Level 141 mmol/L Potassium Level 3.4 mmol/L Chloride Level 110 mmol/L Carbon Dioxide Level 23 mmol/L Anion Gap 8.0 mmol/L Blood Urea Nitrogen 70 mg/dl Creatinine 6.01 mg/dl Est Creatinine Clear Calc Drug Dose 10.1 ml/min Estimated GFR () 8.0 Estimated GFR (Non- 6.9 BUN/Creatinine Ratio 11.8 Random Glucose 96 mg/dl Calcium Level 8.9 mg/dl Assessment and Plan 62 y/o F who was admitted for observation on 12/31 for acute diverticulitis seen on CT 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 and suffers from anemia of chronic disease Acute sigmoid diverticulitis: noted as mild on CT without abscess Cipro/flagyl PO given tolerating advancing diet Renal transplant: steroids and immunosuppressants as prior States she has been holding her olmesartan recently due to lower BP, continue to hold Renal US is WNL for transplant Baseline cr has been 6-6.6 recently, current discussions for consideration of repeat transplant Anemia of chornic disease: has been on procrit injections, pending iron studies and consideration of iv iron Abn UA: urine cx pending on antibiotic for diverticulitis DM: diet controlled, recent A1c was 6.1 SCDs for DVT proph
[2018-01-01] MEDS ORDERED: POTASSIUM CHLORIDE 20 MEQ TABCR PO ONE (18:45)
[2018-01-01] MEDS: CIPROFLOXACIN 500 MG TAB PO SCH (21:18)
[2018-01-02] VITALS (9 sets, daily range): BP systolic 103–129; BP diastolic 55–79; PULSE 70–88; TEMP 36.8–37.1; O2SAT 91–98
[2018-01-02] MEDS: SODIUM CHLORIDE 0.9% 1000ML 1,000 ML IV SCH ×2 (03:52→12:18)
[2018-01-02 06:30] LABS: TRANSFERRIN 159 mg/dl (200-360)
[2018-01-02] MEDS: ONDANSETRON INJ 2 MG/ML 2 ML VIAL IV PRN ×2 (06:35→21:55)
[2018-01-02] MEDS: AZATHIOPRINE 50 MG TAB PO SCH (07:47)
[2018-01-02] MEDS: METRONIDAZOLE 500 MG TAB PO SCH ×2 (07:47→11:26)
[2018-01-02] MEDS: PANTOprazole SOD 40 MG TAB PO SCH (07:48)
[2018-01-02] MEDS: CALCITRIOL 0.25 MCG CAP PO SCH (07:48)
[2018-01-02] MEDS: HYDROCHLOROTHIAZIDE 25 MG TAB PO SCH (07:49)
[2018-01-02] MEDS ORDERED: EPOETIN ALFA 40,000 UNITS/ML VIAL IV SCH (16:00)
--- NOTE | 2018-01-02 19:45 | Progress Note ---
Subjective Date of Service: Jan 02, 2018. Subjective this pt feels very dyspneic on exertion Dr Mensah feels that this is due to symptomatic anemia. the pt has some mild improvement in her abdominal exam. the pt also is concerned about flagyl and wants to be switched to augmentin Problem List Medical Problems: (1) Anemia Status: Acute (2) Elevated serum creatinine Status: Acute (3) Sigmoid diverticulitis Status: Acute Surgical Problems: (1) Kidney transplant recipient Status: Chronic Social History Problems: (1) Hx of kidney transplant Status: Acute Review of Systems Constitutional: + weakness, + fatigue, No fever, No chills Respiratory: + shortness of breath, + dyspnea on exertion, No cough Cardiac: No chest pain, No PND Abdomen: + pain, + diarrhea, No nausea Musculoskeletal: No joint pain, No muscle pain Neurologic: No memory loss, No weakness Psychiatric: No depression symptoms, No anhedonism Objective Vital Signs Date Time Temp Pulse Resp B/P (MAP) Pulse Ox O2 Delivery O2 Flow Rate FiO2 01/02/18 18:22 37.1 18 119/70 (86) 97 Room Air 01/02/18 18:22 37.1 70 18 119/70 91 01/02/18 16:51 37.1 78 18 129/73 95 01/02/18 16:50 37.1 78 18 129/73 (91) 95 01/02/18 16:05 37.1 76 18 126/79 (95) 95 Room Air 01/02/18 16:05 37.1 76 18 126/79 95 01/02/18 16:00 Room Air 01/02/18 14:20 36.9 73 18 113/70 97 01/02/18 13:47 37.0 72 18 103/63 98 01/02/18 13:33 36.8 84 18 121/72 97 01/02/18 08:00 Room Air 01/02/18 07:59 37.1 76 16 117/63 (81) 93 Room Air 01/02/18 00:14 37.0 88 18 113/55 (74) 94 Room Air 01/02/18 00:00 Room Air Physical Exam General Appearance: WD/WN, + mild distress Eyes: normal inspection, sclerae normal Neck: supple, no JVD Respiratory/Chest: chest non-tender, lungs clear, normal breath sounds Cardiovascular: regular rate, rhythm, no murmur Abdomen: normal bowel sounds, non tender, soft Extremities: no pedal edema, no calf tenderness Neurologic/Psychiatric: alert, oriented x 3 Laboratory Results Last 24 Hours Test 01/02/18 05:24 Iron Level 53 mcg/dl Total Iron Binding Capacity 190 mcg/dl Transferrin 159 mg/dl Transferrin % Saturation 24 % Assessment and Plan 62 y/o F who was admitted for observation on 12/31 for acute diverticulitis seen on CT 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 and suffers from anemia of chronic disease Acute sigmoid diverticulitis: noted as mild on CT without abscess Cipro/flagyl changed to Augmentin PO given tolerating advancing diet Renal transplant: steroids and immunosuppressants continues continue to holding her olmesartan Renal US is WNL for transplant Baseline cr has been 6-6.6 recently, current discussions for consideration of repeat transplant Anemia of chronic disease: will transfuse 2 units leukopoor irradiated blood cells, and give procrit 40,000 units Abn UA: urine cx pending on antibiotic for diverticulitis DM: diet controlled, recent A1c was 6.1 SCDs for DVT proph
[2018-01-02] MEDS ORDERED: AUGMENTIN - PHARMACY CONSULT IN PROGRESS PRN (20:45)
[2018-01-02] MEDS: AMOXICILLIN/CLAVULANATE TAB 500 MG TAB PO SCH (21:55)
[2018-01-03] VITALS: BP 115/71; PULSE 71; TEMP 36.7; O2SAT 94
[2018-01-03 04:31] VITALS: BP 128/69; PULSE 73; TEMP 36.7; O2SAT 99
[2018-01-03] MEDS: SODIUM CHLORIDE 0.9% 1000ML 1,000 ML IV SCH ×3 (05:50→15:58)
[2018-01-03 06:34] LABS: HEMATOCRIT 26.9 % (37-47); HEMOGLOBIN 9.2 g/dL (12.0-16.0); MEAN CELL VOLUME 100.7 fL (80-100); MEAN CORPUSCULAR HEMOGLOBIN 34.5 pg (25-34); MEAN CORPUSCULAR HGB CONC 34.2 g/dl (32-36); MEAN PLATELET VOLUME 9.7 fL (7.4-10.4); PLATELET COUNT 207 K/uL (130-400); WHITE BLOOD COUNT 4.98 K/uL (4.8-10.8)
[2018-01-03 06:49] LABS: EOS % 1.6 %; EOS ABS # 0.08 K/uL (0-0.5); IG# 0.02 K/uL (0.00-0.02); LYMPH % 15.9 %; LYMPH ABS # 0.79 K/uL (1.2-3.4); MONO % 7.8 %; MONO ABS # 0.39 K/uL (0.11-0.59); NEUT % 74.3 %
[2018-01-03 07:00] LABS: CREATININE 5.32 mg/dl (0.60-1.20)
[2018-01-03 07:25] VITALS: BP 116/72; PULSE 71; TEMP 36.7; O2SAT 97
[2018-01-03] MEDS: VANCOMYCIN HCL 125 MG/2.5ML SOLN PO SCH ×3 (08:00→19:42)
[2018-01-03] MEDS: RASPBERRY SYRUP 5 ML UDP PO SCH ×3 (08:00→19:42)
[2018-01-03] MEDS: PANTOprazole SOD 40 MG TAB PO SCH (09:15)
[2018-01-03] MEDS: CALCITRIOL 0.25 MCG CAP PO SCH (09:15)
[2018-01-03] MEDS: HYDROCHLOROTHIAZIDE 25 MG TAB PO SCH (09:16)
[2018-01-03] MEDS: AZATHIOPRINE 50 MG TAB PO SCH (09:17)
[2018-01-03 15:12] VITALS: BP 159/94; PULSE 72; TEMP 36.5; O2SAT 98
--- NOTE | 2018-01-03 19:26 | Progress Note ---
Subjective Date of Service: Jan 03, 2018. Subjective this pt is doing well diarrhea is tolerable, she has less output and pain and requests advancing Problem List Medical Problems: (1) Anemia Status: Acute (2) Elevated serum creatinine Status: Acute (3) Sigmoid diverticulitis Status: Acute Surgical Problems: (1) Kidney transplant recipient Status: Chronic Social History Problems: (1) Hx of kidney transplant Status: Acute Review of Systems Constitutional: No fever, No chills Respiratory: No cough, No shortness of breath Cardiac: No chest pain, No edema Abdomen: + pain, + diarrhea, No nausea, No vomiting Musculoskeletal: No joint pain, No muscle pain Neurologic: No memory loss, No weakness Objective Vital Signs Date Time Temp Pulse Resp B/P (MAP) Pulse Ox O2 Delivery O2 Flow Rate FiO2 01/03/18 16:00 Room Air 01/03/18 15:12 36.5 72 16 159/94 (115) 98 01/03/18 08:00 Room Air 01/03/18 07:25 36.7 71 16 116/72 (87) 97 01/03/18 04:31 36.7 73 18 128/69 (88) 99 Room Air 01/03/18 00:00 Room Air 01/03/18 00:00 36.7 71 18 115/71 (86) 94 Room Air Physical Exam General Appearance: WD/WN, no apparent distress Eyes: normal inspection, sclerae normal Neck: supple, no JVD Respiratory/Chest: chest non-tender, lungs clear Cardiovascular: regular rate, rhythm, no murmur Abdomen: normal bowel sounds, non tender, soft Extremities: no calf tenderness Laboratory Results Last 24 Hours Test 01/03/18 05:38 White Blood Count 4.98 K/uL Red Blood Count 2.67 M/uL Hemoglobin 9.2 g/dL Hematocrit 26.9 % Mean Corpuscular Volume 100.7 fL Mean Corpuscular Hemoglobin 34.5 pg Mean Corpuscular Hemoglobin Concent 34.2 g/dl Platelet Count 207 K/uL Mean Platelet Volume 9.7 fL Neutrophils (%) (Auto) 74.3 % Lymphocytes (%) (Auto) 15.9 % Monocytes (%) (Auto) 7.8 % Eosinophils (%) (Auto) 1.6 % Basophils (%) (Auto) 0.0 % Neutrophils # (Auto) 3.70 K/uL Lymphocytes # (Auto) 0.79 K/uL Monocytes # (Auto) 0.39 K/uL Eosinophils # (Auto) 0.08 K/uL Basophils # (Auto) 0.00 K/uL Immature Granulocyte % (Auto) 0.4 % Immature Granulocyte # (Auto) 0.02 K/uL Anisocytosis PRESENT Tear Drop Cells 1+ Ovalocytes 1+ Echinocytes 1+ Creatinine 5.32 mg/dl Est Creatinine Clear Calc Drug Dose 11.4 ml/min Estimated GFR () 9.3 Estimated GFR (Non- 8.0 Assessment and Plan 62 y/o F who was admitted for observation on 12/31 for acute diverticulitis seen on CT 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 and suffers from anemia of chronic disease Acute sigmoid diverticulitis: noted as mild on CT without abscess Cipro/flagyl changed to Augmentin PO given tolerating advancing diet diarreha found to be C Diff positive started on po vancomycin Renal transplant: steroids and immunosuppressants continues continue to holding her olmesartan Renal US is WNL for transplant Baseline cr has been 6-6.6 recently, current discussions for consideration of repeat transplant Anemia of chronic disease:much improved after transfusion of 2 units leukopoor irradiated blood cells, and give procrit 40,000 units 01/03 Abn UA: urine cx contaminated specimen, on antibiotic for diverticulitis DM: diet controlled, recent A1c was 6.1 SCDs for DVT proph
[2018-01-03] MEDS: ONDANSETRON INJ 2 MG/ML 2 ML VIAL IV PRN (20:36)
[2018-01-03] MEDS: AMOXICILLIN/CLAVULANATE TAB 500 MG TAB PO SCH (20:36)
[2018-01-03 23:24] VITALS: BP 106/65; PULSE 73; TEMP 37; O2SAT 95
[2018-01-04] VITALS: O2SAT 95
[2018-01-04] MEDS: VANCOMYCIN HCL 125 MG/2.5ML SOLN PO SCH ×4 (01:38→20:14)
[2018-01-04] MEDS: RASPBERRY SYRUP 5 ML UDP PO SCH ×4 (01:39→20:14)
[2018-01-04] MEDS: SODIUM CHLORIDE 0.9% 1000ML 1,000 ML IV SCH (02:14)
[2018-01-04 07:37] VITALS: BP 128/76; PULSE 70; TEMP 36.9; O2SAT 96
[2018-01-04] MEDS: HYDROCHLOROTHIAZIDE 25 MG TAB PO SCH (07:52)
[2018-01-04] MEDS: PANTOprazole SOD 40 MG TAB PO SCH (07:52)
[2018-01-04] MEDS: CALCITRIOL 0.25 MCG CAP PO SCH (07:52)
[2018-01-04] MEDS: AZATHIOPRINE 50 MG TAB PO SCH (07:53)
[2018-01-04] MEDS ORDERED: VANC5CAP PO (08:01)
[2018-01-04] MEDS ORDERED: AMOX1TAB42 PO (08:01)
--- NOTE | 2018-01-04 08:02 | Discharge Instructions ---
Discharge Instructions Date of Service Jan 05, 2018. Admission Reason for Admission: Sigmoid Diverticulitis Discharge Discharge Diagnosis / Problem: diverticulitis, c diff Discharge Goals Goal(s): Diagnostic testing, Therapeutic intervention Activity Recommendations Activity Limitations: as noted below Lifting Limitations: gradually increase as tolerated . Current Hospital Diet Patient's current hospital diet: Renal Diet Discharge Diet Recommended Diet: Renal Diet Pending Studies Studies pending at discharge: no Medical Emergencies . Who to Call and When: Medical Emergencies: If at any time you feel your situation is an emergency, please call 911 immediately. . Non-Emergent Contact Non-Emergency issues call your: Re[employer] Stripper Call Non-Emergent contact if: temperature is above 101, your pain is unusual for you . . "Provider Documentation" section prepared by Jaime Sheridan. . VTE Core Measure Inpt VTE Proph given/why not?: Unfractionated heparin SQ
[2018-01-04 09:10] LABS: CREATININE 4.97 mg/dl (0.60-1.20)
[2018-01-04] MEDS ORDERED: ONDA4TAB65 PO (11:24)
[2018-01-04] MEDS ORDERED: QSTP PO (11:25)
[2018-01-04] MEDS: CHOLESTYRAMINE LIGHT 4 GM PKT PO SCH ×2 (11:30→23:10)
[2018-01-04 15:34] VITALS: BP 138/78; PULSE 77; TEMP 36.5; O2SAT 95
--- NOTE | 2018-01-04 15:58 | Progress Note ---
Subjective Date of Service: Jan 04, 2018. Subjective this pt is weak and feels she needs another day to have strength to drive home, she is still with diarrhea Problem List Medical Problems: (1) Anemia Status: Acute (2) Elevated serum creatinine Status: Acute (3) Sigmoid diverticulitis Status: Acute Surgical Problems: (1) Kidney transplant recipient Status: Chronic Social History Problems: (1) Hx of kidney transplant Status: Acute Review of Systems Constitutional: No fever, No chills Respiratory: No cough, No shortness of breath, No dyspnea on exertion Cardiac: No chest pain, No PND Abdomen: + pain, + diarrhea, No nausea, No vomiting Musculoskeletal: No joint pain, No muscle pain Psychiatric: No depression symptoms, No anxiety Objective Vital Signs Date Time Temp Pulse Resp B/P (MAP) Pulse Ox O2 Delivery O2 Flow Rate FiO2 01/04/18 15:34 36.5 77 20 138/78 (98) 95 Room Air 01/04/18 08:00 Room Air 01/04/18 07:37 36.9 70 18 128/76 (93) 96 Room Air 01/04/18 00:00 95 Room Air 01/03/18 23:24 37.0 73 16 106/65 (79) 95 Room Air 01/03/18 20:00 Room Air 01/03/18 16:00 Room Air Physical Exam General Appearance: WD/WN, + mild distress Eyes: normal inspection, sclerae normal Respiratory/Chest: chest non-tender, lungs clear, normal breath sounds Cardiovascular: regular rate, rhythm, no murmur Abdomen: normal bowel sounds, non tender, soft Extremities: no pedal edema, no calf tenderness Neurologic/Psychiatric: alert, oriented x 3 Laboratory Results Last 24 Hours Test 01/04/18 07:59 Creatinine 4.97 mg/dl Est Creatinine Clear Calc Drug Dose 12.2 ml/min Estimated GFR () 10.1 Estimated GFR (Non- 8.7 Assessment and Plan 62 y/o F who was admitted for observation on 12/31 for acute diverticulitis seen on CT 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 and suffers from anemia of chronic disease Acute sigmoid diverticulitis: noted as mild on CT without abscess Cipro/flagyl changed to Augmentin PO given tolerating advancing diet diarreha found to be C Diff positive started on po vancomycin Renal transplant: steroids and immunosuppressants continues continue to holding her olmesartan restart on discharge Renal US is WNL for transplant Baseline cr has been 6-6.6 recently, current discussions for consideration of repeat transplant Anemia of chronic disease less dyspnea with walking after transfusion of 2 units leukopoor irradiated blood cells, and give procrit 40,000 units 01/03 Abn UA: urine cx contaminated specimen, on antibiotic for diverticulitis DM: diet controlled, recent A1c was 6.1 SCDs for DVT proph
[2018-01-04] MEDS: AMOXICILLIN/CLAVULANATE TAB 500 MG TAB PO SCH (20:13)
[2018-01-04] MEDS: ONDANSETRON INJ 2 MG/ML 2 ML VIAL IV PRN (20:14)
[2018-01-05 00:02] VITALS: BP 121/67; PULSE 77; TEMP 36.9; O2SAT 95
[2018-01-05] MEDS: VANCOMYCIN HCL 125 MG/2.5ML SOLN PO SCH ×2 (02:09→07:49)
[2018-01-05] MEDS: RASPBERRY SYRUP 5 ML UDP PO SCH ×2 (02:10→07:49)
[2018-01-05 07:47] VITALS: BP 128/81; PULSE 75; TEMP 36.4; O2SAT 92
[2018-01-05] MEDS: AMOXICILLIN/CLAVULANATE TAB 500 MG TAB PO SCH (07:50)
[2018-01-05] MEDS: HYDROCHLOROTHIAZIDE 25 MG TAB PO SCH (07:50)
[2018-01-05] MEDS: AZATHIOPRINE 50 MG TAB PO SCH (07:50)
[2018-01-05] MEDS: PANTOprazole SOD 40 MG TAB PO SCH (07:51)
[2018-01-05] MEDS: CALCITRIOL 0.25 MCG CAP PO SCH (07:51)
[2018-01-05] MEDS: CHOLESTYRAMINE LIGHT 4 GM PKT PO SCH (07:52)
[2018-01-05 08:07] LABS: CREATININE 5.17 mg/dl (0.60-1.20)
[2018-01-05] MEDS ORDERED: CONSULT PHARMACY STA (09:07)
[2018-01-05] MEDS ORDERED: ONDANSETRON 4 MG TAB PO SCH ×2 (09:30→21:00)
[2018-01-05] MEDS ORDERED: VANCOMYCIN HCL 125 MG/2.5ML SOLN PO SCH (09:30)
[2018-01-05] MEDS ORDERED: RASPBERRY SYRUP 5 ML UDP PO SCH (09:30)
[2018-01-05] MEDS ORDERED: AMOXICILLIN/CLAVULANATE TAB 500 MG TAB PO SCH (09:30)
[2018-01-05 09:36] VITALS: BP 128/81; PULSE 75; TEMP 36.4; O2SAT 92
--- NOTE | 2018-01-05 13:14 | Discharge Summary ---
Discharge Summary Date of Service Jan 05, 2018. Discharge Summary Admission Date: Dec 31, 2017 at 19:07 Discharge Date: Jan 05, 2018 Discharge Disposition: Home Principal Diagnosis: diverticulitis, c diff colitis Problems/Secondary Diagnoses: (1) Kidney transplant recipient Status: Chronic Medication Reconciliation New Medications: Cholestyramine (Cholestyramine Light) 4 Gm Pack 4 GM PO BID, #10 DOSE Ondansetron Hcl (Zofran) 4 Mg Tab 4 MG PO BID PRN for Nausea, #30 TAB Vancomycin Hcl (Vancomycin) 125 Mg Cap 125 MG PO QID, #56 DOSE 1 Refill Amoxicillin & Pot Clavulanate (Amoxicillin/Clavulanate P) 1 Tab Tab 500 MG PO DAILY@1999, #12 TAB Continued Medications: Azathioprine (Imuran) 50 Mg Tab 150 MG PO DAILY, TAB Calcitriol (Rocaltrol Cap) 0.25 Mcg Cap 0.25 MCG PO UD, CAP TAKE ONE CAP ONCE DAILY THEN ON THE NEXT DAY TAKE 2 CAPS AND ON THE FOLLOWING DAY TAKE ONE CAP THEN REPEAT THIS CYCLE STARTING ON THE NEXT DAY AND CONTINUE. Hydrochlorothiazide (Hctz) 25 Mg Tab 25 MG PO DAILY, TAB Olmesartan Medoxomil (Benicar) 5 Mg Tab 10 MG PO Q2D, TAB Pantoprazole (Protonix) 40 Mg Tab 40 MG PO DAILY, TAB Prednisone (Prednisone) 20 Mg Tab 10 MG PO Q2D, TAB Discharge Exam Review of Systems: Constitutional: No fever, No chills Cardiovascular: No chest pain, No edema Abdomen: + diarrhea, No pain, No nausea Physical Exam: General Appearance: WD/WN, no apparent distress Eyes: normal inspection, sclerae normal Neck: supple, no carotid bruits Respiratory/Chest: chest non-tender, lungs clear, normal breath sounds Cardiovascular: regular rate, rhythm, no edema, no gallop Hospital Course 62 y/o F who was admitted for observation on 12/31 for acute diverticulitis seen on CT 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 and suffers from anemia of chronic disease Acute sigmoid diverticulitis: noted as mild on CT without abscess Cipro/flagyl changed to Augmentin PO renal dose adjusted diarreha found to be C Diff positive started on po vancomycin, will keep for 3 days after augmentin Renal transplant: steroids and immunosuppressants continues continue to holding her olmesartan restart on discharge Renal US is WNL for transplant Baseline cr has been 6-6.6 recently, current discussions for consideration of repeat transplant, discharge Cr now in 5 range Anemia of chronic disease less dyspnea with walking and feels more eneregy after transfusion of 2 units leukopoor irradiated blood cells, and give procrit 40,000 units 01/03 Abn UA: urine cx contaminated specimen, on antibiotic for diverticulitis DM: diet controlled, recent A1c was 6.1 SCDs for DVT proph Total Time Spent: Greater than 30 minutes This includes examination of the patient, discharge planning, medication reconciliation, and communication with other providers. Discharge Instructions Please refer to the electronic Patient Visit Report (Discharge Instructions) for additional information.
== END 2018-01-05 10:56 | disposition home or self-care (01) ==
LOC: C.EDB 14:54 → C.MED 19:07 → ENRESERV 19:16
PROVIDERS: ADMIT Family Medicine; ATTEND Internal Medicine
DX: K57.32 Diverticulitis of large intestine without perforation or abscess without bleeding (principal); A04.72 Enterocolitis due to Clostridium difficile, not specified as recurrent; Z94.0 Kidney transplant status; D64.9 Anemia, unspecified; E11.9 Type 2 diabetes mellitus without complications; Z90.89 Acquired absence of other organs; Z79.899 Other long term (current) drug therapy; Z80.9 Family history of malignant neoplasm, unspecified; Z83.3 Family history of diabetes mellitus; Z82.49 Family history of ischemic heart disease and other diseases of the circulatory system; Z84.1 Family history of disorders of kidney and ureter; Z83.6 Family history of other diseases of the respiratory system; Z88.2 Allergy status to sulfonamides; Z88.8 Allergy status to other drugs, medicaments and biological substances; Z88.5 Allergy status to narcotic agent